=== PATIENT | female | born 1995 | race Caucasian/White ===

== ENCOUNTER 2018-11-24 12:45 | Emergency (ER) | payer MEDICAID ==
--- NOTE | 2018-11-24 13:37 | EDPHY ---
General Time Seen by Provider: 11/24/18 13:36 Narrative: CLINICAL IMPRESSION: Bilateral lumbar back pain ASSESSMENT/PLAN: Patient is a 23-year-old female with no significant medical history who presents to the emergency department with complaints of bilateral lumbar back pain. Patient is afebrile and not toxic appearing, she is in no acute distress on arrival. HSNE intact with no significant red flags. She has had no trauma or injury to warrant x-ray. She had no saddle paresthesias, lower extremity numbness, tingling, major motor weakness, urinary retention or bowel/bladder incontinence. No indication for emergent MRI. Urinalysis revealed trace leuks and 3-5 WBCs, she has no urinary symptoms and I do not suspect acute urinary tract infection or pyelonephritis. No blood to suggest stone, also unlikely as symptoms are bilateral. History and physical examination is consistent with bilateral lumbar back pain without radiculopathy. There were no findings to suggest other etiologies etiologies including vertebral osteomyelitis, acute fracture, epidural abscess/ hematoma, epidural compression syndrome, AAA, dissection, meningitis, malignancy , transverse myelitis, herpes zoster, or additional emergent intraabdominal infectious/obstructive process. No findings to suggest cauda equina. Patient was given single dose of ibuprofen and a lidoderm patch was placed while in the ED. The patient is well established at [facility], she will call to schedule appointment for repeat examination in 2-3 days. She understands that she may need additional imaging in the future or might even benefit from physical therapy. She will continue anti-inflammatories and Lidoderm patch as needed. Strict return precautions discussed- she will return for increased or unmanageable pain, new injury, new midline back pain, numbness, tingling, weakness of legs, loss of bowel or bladder control, saddle paresthesia, urinary retention, loss of bowel or bladder control, difficulty walking or for any other new, worsening or worrisome symptoms. Patient verbalizes understanding and she is in agreement with plan. DIFFERENTIAL DX: Back pain including but not limited to muscular pain, herniated disc, spine fracture, intra-abdominal causes and urinary tract infection. ED COURSE: 1354: Case discussed with Dr. Charles CHIEF COMPLAINT: Bilateral lumbar back pain HPI: Patient is a 23-year-old female with no significant medical history who presents to the emergency department with bilateral lumbar back pain. Patient reports yesterday she was getting out of her car when she had a sudden onset of bilateral lower back pain. She denies any trauma, heavy lifting or injury. She does have a history of lumbar back pain in this area however it is never been this severe. Patient reports yesterday the pain worsened throughout the day, she took some ibuprofen with little relief. Patient reports improvement of her discomfort today as well as improvement of her overall mobility. She denies any recent fever, no history of IV drug use. She has never had any spinal procedures performed. She denies any chest pain, shortness of breath or abdominal pain. She denies any flank pain or urinary symptoms to include dysuria, hematuria or increased frequency. Bowel movements have been regular and normal. Patient denies saddle paresthesias, lower extremity numbness, tingling, major motor weakness, urinary retention or bowel/bladder incontinence. PMH: Denies Pertinent Past Surgical History: Denies Family History: Not contributory Social History: Current everyday smoker, rare alcohol, denies illicit drug use or history of IV drug use. Well established at [facility], does not remember name of her regular provider. REVIEW OF SYSTEMS: All other systems negative Constitutional: No fever, no chills, appetite change. Eyes: No discharge, vision change ENT: No sore throat, congestion, ear pain. Cardiovascular: No chest pain, no palpitations. Respiratory: No cough, no shortness of breath. Gastrointestinal: No abdominal pain, no vomiting, diarrhea. Genitourinary: No hematuria, dysuria, flank pain, pelvic pain Musculoskeletal: Lumbar back pain. No joint swelling, joint pain, myalgias. Skin: No rashes, color change. Neurological: No headache, dizziness, weakness. PHYSICAL EXAM: General Appearance: Patient is well-appearing and in no acute distress. HENT: Normocephalic, atraumatic. Bilateral external ears are normal. Bilateral tympanic membranes are normal with pearly zaragoza reflex. Nares are clear, mucosa is pink. Oropharynx is clear, uvula is midline. There is no tonsillar enlargement or exudate. The dentition is normal. Eyes: PERRLA, no acute vision change, nystagmus, swelling, discharge, pain or photosensitivity. Conjunctiva pink, no pallor or injection Neck: Supple, nontender, no lymphadenopathy, no midline pain, FROM, no meningismus. Back: No step-off, palpable bony abnormality, edema, erythema or ecchymosis of the cervical, thoracic or lumbar spines. No tenderness to palpation of the thoracic spine, patient is mildly tender in the midline lumbar spine however most tender in the bilateral lumbar paraspinal muscles. Limited ROM of lumbar spine due to pain. 5/5 and equal strength of the UEs and LEs bilaterally including shoulder shrug. Pulses: 2+ and equal radial, DP and PT pulses bilaterally. Sensation intact and symmetric to light touch from face, UEs and LEs bilaterally. Straight leg raise negative bilaterally. No CVA tenderness bilaterally. High Sensitivity Neuro Exam (HSNE) Lumbar pain L1: inner thigh sensation- no deficit L2: ADduct thigh (cross legs) - no deficit L3: Extend knee- no deficit L4: Ankle dorsiflexion- no deficit L5: Great toe extension- no deficit S1: Flex knee- no deficit S3-4: bladder/bowel function- no dysfunction HSNE - no deficit Red flags: MINOR (1 pt each) Alcohol abuse - 0 DM - 0 Renal failure - 0 Night pain - 0 3rd visit in <= 20 days - no MAJOR (3 pts each) IVDA - 0 Fever without focus - 0 Recent/current systemic infection - 0 Immunosuppression (physician discretion) - 0 Recent spinal fracture/spinal procedure (ESR is not a good screen for spinal epidural hematoma)- 0 New bladder/bowel incontinence or retention - 0 Total Red Flag score - 0 Total Red Flag score <= 3 AND neuro exam is at baseline ---> no MRI is recommended Respiratory: There are no retractions, lungs are clear to auscultation. Cardiac: Regular rate and rhythm, no murmurs or gallops. Gastrointestinal: Abdomen is soft, nontender, bowel sounds normal, no masses/ hernia, no rigidity, guarding or focal peritoneal findings. Neurological: Alert and oriented x 3, CN 2-12 grossly intact, normal gait no ataxia, DTR's intact, normal sensation and strength Skin: Warm, dry, no rashes, no nodules on palpation. Musculoskeletal: Extremities are symmetrical, full range of motion, no tenderness, deformity, swelling, or erythema. Psychiatric: Patient is oriented X 3, there is no agitation. MEDICAL DECISION MAKING: Patient was seen independently. Secondary supervising physician at time of evaluation was Dr. Charles, case and plan of care were discussed with him however he did not personally evaluate this patient. Diagnosis: Bilateral lumbar back pain. Summary: See Assessment and Plan for summary of ED visit Clinical lab tests: Not applicable. Independent visualization of images, tracing, or specimens: Not applicable. Decision to obtain medical records or history from someone other than the patient: No Review / Summarize previous medical records: Yes Discussed patient with another provider: Yes, Dr. Charles Patient Progress: Stable, discharged. - History Smoking Status: Current every day smoker - Objective Vital Signs: Initial Vital Signs Temperature (C) 37 C 11/24/18 12:58 Heart Rate 72 11/24/18 12:58 Respiratory Rate 16 11/24/18 12:58 Blood Pressure 131/67 H 11/24/18 12:58 O2 Sat (%) 97 11/24/18 12:58 O2 Delivery Mode Room Air Allergies/Adverse Reactions: No Known Allergies Allergy (Verified 11/24/18 13:01) Home Medications: Medication Instructions Recorded Venlafaxine 25MG (*) 11/24/18 Laboratory Results: 11/24/18 12:20 Urine Color YELLOW Urine Appearance HAZY Urine pH 5.0 (5.0-7.5) Ur Specific [place] 1.024 (1.002-1.030) Urine Protein NEGATIVE (NEGATIVE) Urine Ketones NEGATIVE (NEGATIVE) Urine Blood NEGATIVE (NEGATIVE) Urine Nitrate NEGATIVE (NEGATIVE) Urine Bilirubin NEGATIVE (NEGATIVE) Urine Urobilinogen 2.0 EU H EU (0.2-1.0) Ur Leukocyte Esterase TRACE H (NEGATIVE) Urine RBC NONE SEEN /hpf /hpf (0-3) Urine WBC 3-5 /hpf H /hpf (0-3) Ur Epithelial Cells TRACE /lpf /lpf (NONE-1+) Urine Mucus TRACE /lpf /lpf (NONE-1+) Urine Glucose NEGATIVE (NEGATIVE) Medications Given: Miscellaneous Information (Patch Removal) 1 ea TD DAILY21 KEVIN Stop: 05/23/19 20:59 Last Admin: 11/24/18 13:57 Dose: 1 ea Discontinued Medications Ibuprofen (Motrin) 400 mg PO EDNOW ONE Stop: 11/24/18 13:52 Last Admin: 11/24/18 13:55 Dose: 400 mg Miscellaneous Medication (Icy Hot Lidocaine/Menthol 4%/1% Patch) 1 patch TD EDNOW ONE Stop: 11/24/18 13:52 Last Admin: 11/24/18 13:55 Dose: 1 patch Departure - Departure Disposition: Home, Routine, Self-Care Clinical Impression: Lumbar back pain Condition: Good Instructions: Back Pain (ED) Additional Instructions: DISCHARGE INSTRUCTIONS FROM YOUR DOCTOR Thank you for visiting our emergency department today. Please keep in mind that discharge from the emergency department does not mean that there is nothing wrong - it simply means that we have not identified an emergency condition that requires further evaluation or treatment in the hospital. You should always plan to follow up with primary care for re-evaluation of your condition in the next 2-3 days. Please follow-up with [facility] as we discussed. Most back pain improves quickly with rest and anti-inflammatory medicines. The majority of back pain will improve regardless of treatment within 4-6 weeks. Regardless, I recommend you follow up with primary care for recheck as soon as possible. Additional evaluation as an outpatient may be needed, and further therapeutic modalities such as chiropractic or PT may be helpful. Rest. Avoid lifting greater than 10-15 pounds. Avoid twisting or prolonged sitting. Movement and gentle walking is good for your back. Try to walk for 15-10 minutes on an even surface 3 or 4 times a day as tolerated and increase gentle exercise as your back improves. Apply ice to your low back during acute pain phase, later a heating pad set to a low setting or hot tub may be helpful to help relax muscles. For pain control: You may take Tylenol, I recommend 500-1000 mg every 6-8 hours as needed. Take with food and a full glass of water. Stop taking if this is upsetting her stomach. Do not exceed 4000 mg in a 24 hr period. Salonpas pain patch if you feel that this has helped you. You may purchase this [id number] at the grocery store or your pharmacy. Follow the instructions on the packaging. You may also take ibuprofen, recommend 400 mg every 6 hr. Take with food and a full glass of water. Stop taking if this upsets her stomach. Do not exceed 2400 mg in a 24 hr period. Schedule a follow-up appointment with your primary care physician in the next 2- 3 days for re-evaluation. You may require further treatment, physical therapy and/or further future testing. Return for increased or unmanageable pain, new injury, new midline back pain, numbness, tingling, weakness of your legs, loss of bowel or bladder control, inability to urinate, burning or pain with urination, blood in the urine, fever , chills, abdominal pain, vomiting, difficulty walking, dizziness, fainting, chest pain, shortness of breath, neck pain, neck stiffness, other site of back pain, calf pain, leg redness or swelling, or for any other new, worsening or worrisome symptoms. People present with illnesses and injuries in different ways, and it is always possible that we have missed something. You may always return for re-evaluation if symptoms worsen or if they are not improving or if you develop new/different symptoms. Again, thank you for choosing our emergency department. We hope that you feel better. Referrals: [facility],. [Clinic] - 2-3 days without fail
[2018-11-24] MEDS ORDERED: LIDOCAINE 4%/MENTHOL 1% PATCH TD ONE (13:51)
[2018-11-24] MEDS ORDERED: IBUPROFEN 200 MG TAB PO ONE (13:51)
[2018-11-24 14:25] VITALS: BP 126/81
[2018-11-24] MEDS ORDERED: PATCH REMOVAL 1 EA PATCH TD SCH (21:00)
== END 2018-11-24 14:25 | disposition home or self-care (01) ==
DX: M54.5 Low back pain (principal)